=== PATIENT | female | born 1965 ===

== ENCOUNTER 2024-02-08 13:22 | Outpatient (AMB) | payer BC, SELFPAY ==
--- NOTE | 2024-02-08 13:28 | MHC.PC.OV ---
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 Required: No Accompanied by: Self / Same As Patient Allergies dulaglutide [From Trulicity] Adverse Reaction (Intermediate, Verified 02/08/24 14:07) weight gain Medication List - Last Reconciled 02/08/24 by Tori Mcneil MD apremilast (Otezla) 30 mg PO ONCE dulaglutide (Trulicity) mg subcut hydrochlorothiazide 25 mg PO DAILY losartan 50 mg PO DAILY metformin ER 500 mg PO BID Tobacco use date assessed: 02/08/24 Dental Screening Dental Screen Date: 02/08/24 Did you have a dental visit in the last 12 months?: No Did you have a dental problem in the last 6 months where you did not have access to dental care?: No Was dental information given to patient?: Patient has dentist HPI HPI Comments History of Present Illness Details This is a 58-year-old female with diabetes mellitus type 2, hypertension, psoriatic arthritis and dyslipidemia that comes today to establish care. A1c within goal. Blood pressure elevated and will be recheck in 3 weeks by nurse navigator. Has psoriatic arthritis and needs a new dehorner. Lipid panel will be order due to her history of dyslipidemia. She is obese with a BMI of 35.3 and was advised to do diet and exercise as tolerated to reach BMI goal less than 30. No chest pain or shortness of breath. [facility] Surgical History (Updated 02/08/24 @ 13:53 by Tori Mcneil MD) History of colonoscopy History of appendectomy History of Family History Mother Breast cancer Colon cancer Stomach cancer Father Alzheimer disease Social History (Updated 02/08/24 @ 13:54 by Tori Mcneil MD) Housing: House Alcohol intake: never Patient Tobacco Use Status: Former Tobacco user e-Cigarette/Vaping Use: Never Used Second Hand Smoke Exposure: No service: No Current occupational status: employed Current occupational exposures/hazards: No Cognitive needs: No Hearing needs: No Vision needs: Yes Questionnaire PHQ-9 Over the last 2 weeks, how often have you been bothered by any of the following problems? 1. Little interest or pleasure in doing things: not at all 2. Feeling down, depressed, or hopeless: not at all 3. Trouble falling or staying asleep, or sleeping too much: not at all 4. Feeling tired or having little energy: not at all 5. Poor appetite or overeating: not at all 6. Feeling bad about yourself - or that you are a failure or have let yourself or your family down: not at all 7. Trouble concentrating on things, such as reading the newspaper or watching television: not at all 8. Moving or speaking so slowly that other people could have noticed. Or the opposite - being so fidgety or restless that you have been moving around a lot more than usual: not at all 9. Thoughts that you would be better off or of hurting yourself in some way: not at all Total score: 0 Depression Screening Interpretation: Negative Depression Screening Done: Yes 16470 - PHQ-9 Billing: Yes Source: Developed by Drs. Dennis Martin, Palmira Lozoya, Hitesh Soliz and colleagues, with an educational lois from [employer]. Thrive Questionnaire Date Thrive assessed: 02/08/24 I am a: Patient What is your living situation today?: I have a steady place to live Within the past 12 months, did the food you bought not last and you didn't have the money to get more?: Never true Within the past 12 months, did you worry whether your food would run out before you got money to buy more?: Never true Do you have trouble paying for medicines?: No Do you have trouble getting transportation to medical appointments?: No Do you have trouble paying your heating and electricity bill?: No Do you have trouble taking care of your child, family member or friend?: No Do you have trouble with day-to-day activities such as bathing, preparing meals, shopping, managing finances, etc.?: No Are you currently unemployed and looking for a job?: No Are you interested in more education?: No Please select the resources that you would like help with: None Currently or been in a relationship where the following occur: no concerns reported THRIVE Score: 0 AUDIT C Alcohol Use Questionnaire (AUDIT-C) 1. How often do you have a drink containing alcohol?: Never Total Score: 0 CARRINGTON-7 AMB Questionnaire CARRINGTON-7 Date CARRINGTON - 7 assessed: 02/08/24 Feeling nervous, anxious, or on edge: 0 = Not at all Not being able to stop or control worryin = Not at all Worrying too much about different things: 0 = Not at all Trouble relaxin = Not at all Being so restless that it is hard to sit still: 0 = Not at all Becoming easily annoyed or irritable: 0 = Not at all Feeling afraid as if something awful might happen: 0 = Not at all Total CARRINGTON-7 score (0-4 normal; 5-9 mild; 10-14 moderate; 15-21 severe): 0 Source: Developed by Drs. Dennis Martin, Palmira Lozoya, Hitesh Soliz and colleagues, with an educational lois from [employer]. Review of Systems Const All systems reviewed & are unremarkable except as noted in HPI and below Eyes Reports no additional complaints, Denies change in vision and Denies other visual disturbances Card Denies chest pain at rest, Denies chest pain with activity, Denies edema, Denies irregular heart rhythm, Denies claudication, Denies dyspnea, Denies dyspnea on exertion, Denies orthopnea, Denies paroxysmal nocturnal dyspnea and Denies slow heart rate Resp Denies cough, Denies dyspnea and Denies dyspnea on exertion GI Denies abdominal pain, Denies change in bowel habits, Denies excessive flatus, Denies nausea and Denies vomiting Denies urinary incontinence, Denies urinary hesitancy and Denies urinary urgency Physical exam (Primary Care) Vital Signs: Last Vital Signs BP 160/100 H 02/08/24 13:29 BMI result Body Mass Index 35.3 Tobacco/Smoking Status: Tobacco use Status Tobacco use date assessed 02/08/24 02/08/24 13:38 Patient Tobacco Use Status Former Tobacco user 02/08/24 13:54 e-Cigarette/Vaping Use Never Used 02/08/24 13:54 PHQ-9: PHQ-9 Score PHQ-9: Total score 0 02/08/24 14:14 Depression Screening Interpretation: Negative Thrive Assessment: Date of Thrive Assessment Date Thrive assessed 02/08/24 02/08/24 13:38 Currently or been in a relationship where the following occur: no concerns reported Resp Effort & Inspection: normal respiratory effort Auscultation: clear to auscultation bilaterally Cardio Jugular venous distension: no JVD Rate: regular rate Rhythm: regular rhythm Heart sounds: S1 normal heart sound present and S2 normal heart sound present Extrem General: Yes full ROM Results AMB Hemoglobin A1c AMB Hemoglobin A1c 5.9 % Last Edit by FELIPE Garcia on 02/08/24 13:52 Results Reviewed Results Reviewed: Laboratory Last Values Hgb A1c (Clinic) 5.9 % (4.0-6.0) 02/08/24 13:52 Assessment and Plan Assessment & Plan (1) Type 2 diabetes mellitus, without long-term current use of insulin: Code(s): E11.9 - Type 2 diabetes mellitus without complications Plan: Continue metformin. Discontinue Trulicity. Start Ozempic. A1c goal is equal or less than 7%. (2) Psoriatic arthritis: Code(s): L40.50 - Arthropathic psoriasis, unspecified Plan: Continue Otezla. Referred to Dermatology. (3) Essential hypertension: Code(s): I10 - Essential (primary) hypertension Plan: Continue losartan hydrochlorothiazide. Blood pressure goal is equal or less than 130/80. (4) Dyslipidemia: Code(s): E78.5 - Hyperlipidemia, unspecified Plan: Repeat lipid panel. LDL goal is less than 70. Orders: Orders Lipid Panel Today E78.5 - Hyperlipidemia, unspecified AMB Hemoglobin A1c Today E11.9 - Type 2 diabetes mellitus without complications Microalbumin, Random (w Creat) Today E11.9 - Type 2 diabetes mellitus without complications Comprehensive [place]. Panel Fast Today E11.9 - Type 2 diabetes mellitus without complications Referrals Dermatology Referral L40.50 - Arthropathic psoriasis, unspecified Medications: New semaglutide (Ozempic) for 4 weeks 0.25 mg (0.368 mL) subcut QWEEK 30 days 1.84 mL 0RF Coding Level of Care Code Est Pt Level 4 (76137) Diagnoses Type 2 diabetes mellitus, without long-term current use of insulin E11.9 Psoriatic arthritis L40.50 Essential hypertension I10 Dyslipidemia E78.5 Time Spent (min) 24
[2024-02-08 13:29] VITALS: BP 160/100; BMI 35.3
== END 2024-02-08 14:16 | disposition home or self-care (01) ==
PROVIDERS: PCP Internal Medicine; Visit Provider Internal Medicine
DX: E11.9 Type 2 diabetes mellitus without complications (principal); L40.50 Arthropathic psoriasis, unspecified; I10 Essential (primary) hypertension; E78.5 Hyperlipidemia, unspecified
CPT/HCPCS: 83036; 99214

== ENCOUNTER 2024-06-08 06:28 | Outpatient (REF) | payer BC, SELFPAY ==
[2024-06-08 07:44] LABS: Alanine Aminotransferase 41 U/L (0-31); Albumin Level 4.3 g/dL (3.5-5.0); Alkaline Phosphatase 77 U/L (39-117); Anion Gap 13 (12-20); Aspartate Amino Transferase 22 U/L (5-31); Bilirubin Total 0.6 mg/dL (0.0-1.0); Blood Urea Nitrogen 13 mg/dL (9-16); Calcium 10.3 mg/dL (8.4-10.2); Carbon Dioxide 32 mmol/L (22-29); Chloride 98 mmol/L (96-108); Cholesterol 246 mg/dL (<200); Estimated Glomerular Filt Rate > 60; Glucose Fasting 122 mg/dL (60-99); HDL Cholesterol 38 mg/dL (>40); LDL Cholesterol Calculated 179 mg/dL (<100); Sodium 140 mmol/L (135-145); Total Protein 7.7 g/dL (6.5-8.0); Triglycerides 148 mg/dL (<150)
[2024-06-08 07:47] LABS: Microalbum/Creatinine Ratio Ur 12.7 ug/mg cr (<30)
== END 2024-06-08 06:29 | disposition home or self-care (01) ==
LOC: HO.LAB 06:28
PROVIDERS: PCP Internal Medicine; Visit Provider Internal Medicine
DX: E11.9 Type 2 diabetes mellitus without complications (principal); E78.5 Hyperlipidemia, unspecified
CPT/HCPCS: 36415; 80053; 80061; 82043; 82570

== ENCOUNTER 2024-06-11 09:25 | Outpatient (AMB) | payer BC, SELFPAY ==
[2024-06-11 09:37] VITALS: BP 132/86; BMI 35.0
--- NOTE | 2024-06-11 09:37 | MHC.PC.OV ---
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 Required: No Accompanied by: Self / Same As Patient [facility] Adverse Reaction (Intermediate, Verified 06/11/24 10:05) weight gain Medication List - Last Reconciled 06/11/24 by Tori Mcneil MD apremilast (Otezla) 30 mg PO ONCE hydrochlorothiazide 25 mg PO DAILY 90 days losartan 50 mg PO DAILY metformin ER 500 mg PO BID 90 days semaglutide (Ozempic) 1 mg (0.75 mL) subcut QWEEK 4 weeks Tobacco use date assessed: 02/08/24 Dental Screening Dental Screen Date: 02/08/24 HPI HPI Comments History of Present Illness Details This is a 59-year-old female with diabetes mellitus type 2, hypertension, hyperlipidemia and psoriatic arthritis that comes today accompanied by daughter Jennifer complaining of a lump in the head that she noticed 2 weeks ago. A1c within goal. Blood pressure stable. LDL not on goal and I will start her on statins. Psoriatic arthritis is follow by Dermatology. Labs were discussed and has low potassium that will be replaced and this will be repeated. [facility] Surgical History History of colonoscopy History of appendectomy History of Family History Mother Breast cancer Colon cancer Stomach cancer Father Alzheimer disease Social History Housing: House Alcohol intake: never Patient Tobacco Use Status: Former Tobacco user e-Cigarette/Vaping Use: Never Used Second Hand Smoke Exposure: No service: No Current occupational status: employed Current occupational exposures/hazards: No Cognitive needs: No Hearing needs: No Vision needs: Yes Questionnaire Thrive Questionnaire Date Thrive assessed: 02/08/24 CARRINGTON-7 AMB Questionnaire CARRINGTON-7 Date CARRINGTON - 7 assessed: 02/08/24 Source: Developed by Drs. Dennis Martin, Palmira Lozoya, Hitesh Soliz and colleagues, with an educational lois from [employer]. Review of Systems Const All systems reviewed & are unremarkable except as noted in HPI and below Card Denies chest pain at rest, Denies chest pain with activity, Denies edema, Denies irregular heart rhythm, Denies claudication, Denies dyspnea, Denies dyspnea on exertion, Denies orthopnea, Denies paroxysmal nocturnal dyspnea and Denies slow heart rate Resp Denies cough, Denies dyspnea and Denies dyspnea on exertion GI Denies abdominal pain, Denies change in bowel habits, Denies excessive flatus, Denies nausea and Denies vomiting Denies urinary incontinence, Denies urinary hesitancy and Denies urinary urgency Skin/Breast Reports lesions Physical exam (Primary Care) Vital Signs: Last Vital Signs BP 132/86 06/11/24 09:37 BMI result Body Mass Index 35.0 BMI Assessment/Plan discussion: High BMI High, discussed plan: lifestyle, weight reduction, dietary and physical activity Tobacco/Smoking Status: Tobacco use Status Tobacco use date assessed 02/08/24 06/11/24 09:40 Patient Tobacco Use Status Former Tobacco user 06/11/24 09:40 e-Cigarette/Vaping Use Never Used 06/11/24 09:40 Thrive Assessment: Date of Thrive Assessment Date Thrive assessed 02/08/24 06/11/24 09:40 HENMT Other: nontender skull lump in frontal area Resp Effort & Inspection: normal respiratory effort Auscultation: clear to auscultation bilaterally Cardio Jugular venous distension: no JVD Rate: regular rate Rhythm: regular rhythm Heart sounds: S1 normal heart sound present and S2 normal heart sound present Extrem General: Yes full ROM Results AMB Hemoglobin A1c AMB Hemoglobin A1c 5.5 % Last Edit by FELIPE Garcia on 06/11/24 09:48 Results Reviewed Results Reviewed: Laboratory Last Values Hgb A1c (Clinic) 5.5 % (4.0-6.0) 06/11/24 09:34 Assessment and Plan Assessment & Plan (1) Skull mass: Code(s): M89.8X8 - Other specified disorders of bone, other site Plan: X-ray of skull ordered. Referred to Dermatology. (2) Hypokalemia: Code(s): E87.6 - Hypokalemia Plan: Start potassium. (3) Psoriatic arthritis: Code(s): L40.50 - Arthropathic psoriasis, unspecified Plan: Follow-up with dermatology. (4) Essential hypertension: Code(s): I10 - Essential (primary) hypertension Plan: Continue hydrochlorothiazide and losartan. Blood pressure goal is equal or less than 130/80. (5) Type 2 diabetes mellitus, without long-term current use of insulin: Code(s): E11.9 - Type 2 diabetes mellitus without complications Plan: Continue metformin. A1c goal is equal or less than 7% (6) Hyperlipidemia LDL goal <70: Code(s): E78.5 - Hyperlipidemia, unspecified Plan: Start statins. LDL goal is less than 70. Orders: Orders Calcium, Ionized Today E83.52 - Hypercalcemia XR skull <4V Today M89.8X8 - Other specified disorders of bone, other site AMB Hemoglobin A1c Today E11.9 - Type 2 diabetes mellitus without complications Complete Blood Count Auto Diff Today D64.9 - Anemia, unspecified IRON PROFILE Today D64.9 - Anemia, unspecified Potassium Today E87.6 - Hypokalemia Referrals Dermatology Referral M89.8X8 - Other specified disorders of bone, other site Medications: New semaglutide (Ozempic) 2 mg (0.75 mL) subcut QWEEK 4 weeks 3 mL 3RF E11.9 - Type 2 diabetes mellitus without complications potassium chloride ER 10 mEq PO DAILY 5 days 5 caps 0RF Discontinued semaglutide (Ozempic) Discontinued Reason: Patient Completed Course 1 mg (0.75 mL) subcut QWEEK 4 weeks 3 mL 0RF Coding Level of Care Code Est Pt Level 4 (70672) Complex EM visit Add On G2211 Diagnoses Skull mass M89.8X8 Hypokalemia E87.6 Psoriatic arthritis L40.50 Essential hypertension I10 Type 2 diabetes mellitus, without long-term current use of insulin E11.9 Hyperlipidemia LDL goal <70 E78.5 Time Spent (min) 23
== END 2024-06-11 10:18 | disposition home or self-care (01) ==
PROVIDERS: PCP Internal Medicine; Visit Provider Internal Medicine
DX: E11.69 Type 2 diabetes mellitus with other specified complication (principal); L40.50 Arthropathic psoriasis, unspecified; M89.8X8 Other specified disorders of bone, other site; E87.6 Hypokalemia; I10 Essential (primary) hypertension; E78.5 Hyperlipidemia, unspecified
CPT/HCPCS: 83036; 99214

== ENCOUNTER 2024-06-11 10:24 | Outpatient (REF) | payer BC, SELFPAY ==
--- NOTE | ~2024-06-11 | XR_ITS ---
EXAMINATION: XR SKULL CLINICAL INFORMATION: Disorder of the osseous structures of the calvarium/face. COMPARISON: None available. TECHNIQUE: 5 views of the skull were obtained. (PA, lateral , Bojorquez, Pretty, and submentovertex views). FINDINGS/ XR/XR skull <4V IMPRESSION: No evidence of acute fracture of the calvarium. No demonstrated displaced fracture of the maxillofacial bones. The temporal mandibular joints appear well aligned. The patient is edentulous. Mild leftward nasal septal deviation. The paranasal sinuses and mastoid air cells appear largely aerated. Electronically signed by: Werner Swenson DO 07/20/2024 01:49 PM EDT
== END 2024-06-11 10:25 | disposition home or self-care (01) ==
LOC: HO.XRAY 10:24
PROVIDERS: PCP Internal Medicine; Visit Provider Internal Medicine
DX: M89.8X8 Other specified disorders of bone, other site (principal)
CPT/HCPCS: 70250

== ENCOUNTER 2024-07-06 06:02 | Outpatient (REF) | payer BC, SELFPAY ==
[2024-07-06 06:16] LABS: MANUAL DIFF FLAG NO
[2024-07-06 07:42] LABS: Basophils Percent Auto 0.3 % (0-2); Eosinophils Absolute Auto 0.2 X10*3/uL (0.0-0.4); Eosinophils Percent Auto 2.3 % (0-4); Hematocrit 40.3 % (37.0-47.0); Hemoglobin 13.7 g/dl (12.0-16.0); Imm Gran Abs Auto 0.02 X10*3/uL (0.00-0.03); Imm Gran Pct Auto 0.3 % (0.0-0.4); Lymphocytes Absolute Auto 2.5 X10*3/uL (1.2-4.9); Lymphocytes Percent Auto 38.3 % (20-40); Mean Corpuscular Hemoglobin 29.4 pg (27.0-33.0); Mean Corpuscular Volume 86.5 fL (80.0-98.0); Mean Platelet Volume 10.9 fL (9.4-12.3); Monocytes Absolute Auto 0.6 X10*3/uL (0.1-1.2); Monocytes Percent Auto 8.7 % (2-11); Neutrophils Absolute Auto 3.3 x10*3/uL (2.0-8.3); Neutrophils Percent Auto 50.1 % (45-73); Platelet Count 331 X10*3/uL (160-400); Red Blood Count 4.66 X10*6/uL (4.20-5.50); Red Cell Distribution Width 12.3 % (11.0-16.0); White Blood Count 6.6 X10*3/uL (4.8-10.8)
[2024-07-06 08:19] LABS: Iron 81 mcg/dL (30-160); Percent Iron Saturation 32 % (15-50); Total Iron Binding Capacity 250 mcg/dL (228-428); Unsaturated Iron Binding 169 ug/dL
[2024-07-09 23:07] LABS: Calcium, Ionized 5.2 mg/dL (4.7-5.5)
== END 2024-07-06 06:03 | disposition home or self-care (01) ==
LOC: HO.LAB 06:02
PROVIDERS: PCP Internal Medicine; Visit Provider Internal Medicine
DX: E87.6 Hypokalemia (principal); E83.52 Hypercalcemia; D64.9 Anemia, unspecified
CPT/HCPCS: 36415; 82330; 83540; 84132; 85025

== ENCOUNTER 2024-07-12 07:20 | Outpatient (AMB) | payer BC, SELFPAY ==
--- NOTE | 2024-07-12 07:40 | MHC.PC.OV ---
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: No Accompanied by: Self / Same As Patient Allergies dulaglutide [From Trulicity] Adverse Reaction (Intermediate, Verified 07/12/24 07:47) weight gain Medication List - Last Reconciled 07/12/24 by Tori Mcneil MD apremilast (Otezla) 30 mg PO ONCE hydrochlorothiazide 25 mg PO DAILY 90 days losartan 50 mg PO DAILY metformin ER 500 mg PO BID 90 days potassium chloride ER 10 mEq PO DAILY 5 days semaglutide (Ozempic) 2 mg (0.75 mL) subcut QWEEK 4 weeks Tobacco use date assessed: 02/08/24 Dental Screening Dental Screen Date: 07/12/24 Did you have a dental visit in the last 12 months?: No Did you have a dental problem in the last 6 months where you did not have access to dental care?: No Was dental information given to patient?: Patient has dentist HPI HPI Comments History of Present Illness Details This is a 59-year-old female with diabetes mellitus type 2 on psoriatic arthritis that comes for her physical exam. Last A1c was within goal. LDL not on goal and I will add statins. Diabetic eye exam was over a year ago and will be referred to Ophthalmology. Mammogram done 2022 and I will order another mammogram. No need for Pap smear due to hysterectomy for benign reasons. Colonoscopy done 2020 showing tubular adenoma and next colonoscopy should be 2025. Complains of left costovertebral angle tenderness and has history of nephrolithiasis and I will order x-ray KUB to rule out renal calculi. Psoriatic arthritis stable with Otezla. [facility] Surgical History (Updated 07/12/24 @ 07:52 by Tori Mcneil MD) H/O: hysterectomy History of colonoscopy History of appendectomy History of Family History Mother Breast cancer Colon cancer Stomach cancer Father Alzheimer disease Social History Housing: House Alcohol intake: never Patient Tobacco Use Status: Former Tobacco user e-Cigarette/Vaping Use: Never Used Second Hand Smoke Exposure: No service: No Current occupational status: employed Current occupational exposures/hazards: No Cognitive needs: No Hearing needs: No Vision needs: Yes Questionnaire PHQ-9 Over the last 2 weeks, how often have you been bothered by any of the following problems? 1. Little interest or pleasure in doing things: not at all 2. Feeling down, depressed, or hopeless: not at all 3. Trouble falling or staying asleep, or sleeping too much: not at all 4. Feeling tired or having little energy: not at all 5. Poor appetite or overeating: not at all 6. Feeling bad about yourself - or that you are a failure or have let yourself or your family down: not at all 7. Trouble concentrating on things, such as reading the newspaper or watching television: not at all 8. Moving or speaking so slowly that other people could have noticed. Or the opposite - being so fidgety or restless that you have been moving around a lot more than usual: not at all 9. Thoughts that you would be better off or of hurting yourself in some way: not at all Total score: 0 Depression Screening Interpretation: Negative Depression Screening Done: Yes 06256 - PHQ-9 Billing: Yes Source: Developed by Drs. Dennis Martin, Palmira Lozoya, Hitesh Soliz and colleagues, with an educational lois from [employer]. Thrive Questionnaire Date Thrive assessed: 07/10/24 I am a: Patient What is your living situation today?: I choose not to answer this question Within the past 12 months, did the food you bought not last and you didn't have the money to get more?: I choose not to answer this question Within the past 12 months, did you worry whether your food would run out before you got money to buy more?: I choose not to answer this question Do you have trouble paying for medicines?: I choose not to answer this question Do you have trouble getting transportation to medical appointments?: I choose not to answer this question Do you have trouble paying your heating and electricity bill?: I choose not to answer this question Do you have trouble taking care of your child, family member or friend?: I choose not to answer this question Do you have trouble with day-to-day activities such as bathing, preparing meals, shopping, managing finances, etc.?: I choose not to answer this question Are you currently unemployed and looking for a job?: I choose not to answer this question Are you interested in more education?: I choose not to answer this question Please select the resources that you would like help with: None Currently or been in a relationship where the following occur: I choose not to answer THRIVE Score: 0 AUDIT C Alcohol Use Questionnaire (AUDIT-C) 1. How often do you have a drink containing alcohol?: Never Total Score: 0 Score Reviewed/Action Taken: No CARRINGTON-7 AMB Questionnaire CARRINGTON-7 Date CARRINGTON - 7 assessed: 07/12/24 Feeling nervous, anxious, or on edge: 0 = Not at all Not being able to stop or control worryin = Not at all Worrying too much about different things: 0 = Not at all Trouble relaxin = Not at all Being so restless that it is hard to sit still: 0 = Not at all Becoming easily annoyed or irritable: 0 = Not at all Feeling afraid as if something awful might happen: 0 = Not at all Total CARRINGTON-7 score (0-4 normal; 5-9 mild; 10-14 moderate; 15-21 severe): 0 Source: Developed by Drs. Dennis Martin, Palmira Lozoya, Hitesh Soliz and colleagues, with an educational lois from [employer]. CARRINGTON-7 Assessment Billing CARRINGTON-7 Assessment Tool: CARRINGTON-7 Assessment 46858 Review of Systems Const All systems reviewed & are unremarkable except as noted in HPI and below Card Denies chest pain at rest, Denies chest pain with activity, Denies edema, Denies irregular heart rhythm, Denies claudication, Denies dyspnea, Denies dyspnea on exertion, Denies orthopnea, Denies paroxysmal nocturnal dyspnea and Denies slow heart rate Resp Denies cough, Denies dyspnea and Denies dyspnea on exertion Physical exam (Primary Care) Vital Signs: Last Vital Signs BP 120/84 07/12/24 07:41 BMI result Body Mass Index 34.2 BMI Assessment/Plan discussion: High BMI High, discussed plan: lifestyle, weight reduction, dietary and physical activity Tobacco/Smoking Status: Tobacco use Status Tobacco use date assessed 02/08/24 07/12/24 07:40 Patient Tobacco Use Status Former Tobacco user 07/12/24 07:40 e-Cigarette/Vaping Use Never Used 07/12/24 07:40 PHQ-9: PHQ-9 Score PHQ-9: Total score 0 07/12/24 07:40 Depression Screening Interpretation: Negative Thrive Assessment: Date of Thrive Assessment Date Thrive assessed 07/10/24 07/12/24 07:40 Currently or been in a relationship where the following occur: I choose not to answer HENME Head: Yes normal to inspection, Yes normocephalic and Yes atraumatic Ears: external ears normal Eyes General: appearance normal, both eyes and all related structures Eyelids: Yes eyelids normal Conjunctivae: conjunctivae normal Neck Neck: Yes normal visual inspection and Yes supple Resp Effort & Inspection: normal respiratory effort Auscultation: clear to auscultation bilaterally Cardio Jugular venous distension: no JVD Rate: regular rate Rhythm: regular rhythm Heart sounds: S1 normal heart sound present and S2 normal heart sound present GI Inspection: Yes normal to inspection Palpation (GI): Soft to palpation and nontender Auscultation: normal bowel sounds Skin General skin exam: no rashes or lesions noted Neuro General: no focal motor deficits Extrem General: Yes full ROM Psych Appearance: grossly normal Office Procedures Flu Questionnaire Does the patient have a severe egg allergy?: No Immunizations Fluarix Triv [id number] (PF) 45 mcg (15 mcg x 3)/0.5 mL IM syringe Performing Provider: Tori Mcneil MD [facility] Documented (not given) by: FELIPE Garcia on 07/12/24 07:44 Reason Not Given: Patient Refused Coding Level of Care Code Est Pt Level 3 (58976) Est Pt Prev Care 40-64y(75775) Diagnoses Physical exam Z00.00 Type 2 diabetes mellitus, without long-term current use of insulin E11.9 Psoriatic arthritis L40.50 Nephrolithiasis N20.0 Additional Codes CARRINGTON-7 Assessment Billing - CARRINGTON-7 Assessment Tool: CARRINGTON-7 Assessment 19206 ([id number]) Time Spent (min) 33 Assessment & Plan Assessment & Plan (1) Physical exam: Code(s): Z00.00 - Encounter for general adult medical examination without abnormal findings Category: Medical Plan: Repeat in a year. (2) Type 2 diabetes mellitus, without long-term current use of insulin: Code(s): E11.9 - Type 2 diabetes mellitus without complications Category: Medical Plan: Continue metformin and Ozempic. A1c goal is equal or less than 7%. (3) Psoriatic arthritis: Code(s): L40.50 - Arthropathic psoriasis, unspecified Category: Medical Plan: Continue Otezla. (4) Nephrolithiasis: Code(s): N20.0 - Calculus of kidney Category: Medical Plan: X-ray KUB ordered. Orders: Orders Comprehensive [place]. Panel Fast 4 Months N20.0 - Calculus of kidney Influenza [id number] Immunization Today Z23 - Encounter for immunization XR KUB Today N20.0 - Calculus of kidney MM tomosynthesis screening BI Today Z12.31 - Encounter for screening mammogram for malignant neoplasm of breast Lipid Panel 4 Months E78.5 - Hyperlipidemia, unspecified Microalbumin, Random (w Creat) 4 Months R80.9 - Proteinuria, unspecified Vitamin D 25-OH Total 4 Months E55.9 - Vitamin D deficiency, unspecified Medications: New rosuvastatin 20 mg PO DAILY 90 days 90 tabs 2RF methocarbamol 500 mg PO TID 7 days PRN 21 tabs 1RF muscle spasm Changed From potassium chloride ER 10 mEq PO DAILY 5 days 5 caps 0RF To potassium chloride ER 10 mEq PO DAILY 30 days 30 caps 4RF
[2024-07-12 07:41] VITALS: BP 120/84; BMI 34.2
== END 2024-07-12 08:12 | disposition home or self-care (01) ==
PROVIDERS: PCP Internal Medicine; Visit Provider Internal Medicine
DX: Z00.00 Encounter for general adult medical examination without abnormal findings (principal); E11.9 Type 2 diabetes mellitus without complications; L40.50 Arthropathic psoriasis, unspecified; N20.0 Calculus of kidney

== ENCOUNTER → 2024-07-12 07:20 | Outpatient (BNVA) | payer BC, SELFPAY | PROVIDERS: PCP Internal Medicine; Visit Provider Internal Medicine | DX: Z00.00 Encounter for general adult medical examination without abnormal findings (principal); E11.9 Type 2 diabetes mellitus without complications; L40.50 Arthropathic psoriasis, unspecified; N20.0 Calculus of kidney; Z79.84 Long term (current) use of oral hypoglycemic drugs; Z79.85 Long-term (current) use of injectable non-insulin antidiabetic drugs; Z79.899 Other long term (current) drug therapy; Z28.21 Immunization not carried out because of patient refusal | CPT/HCPCS: 90471; 96127 ==

== ENCOUNTER 2024-08-15 15:46 | Outpatient (REF) | payer BC, SELFPAY ==
--- NOTE | ~2024-08-15 | MM_ITS ---
EXAMINATION: MM SCREENING DIGITAL BREAST TOMOSYNTHESIS, BILATERAL CLINICAL INFORMATION: Screening. Asymptomatic. COMPARISON: Mammography: Comparison is made with available priors TECHNIQUE: Digital breast mammography with tomosynthesis is performed in both the craniocaudal and mediolateral oblique views along with computer-aided detection (CAD). FINDINGS: There are scattered areas of fibroglandular density (ACR BI-RADS breast composition Category b). There are no significant masses, abnormal calcifications, or other abnormalities. MM/MM tomosynthesis screening BI IMPRESSION: No mammographic evidence of malignancy. ASSESSMENT: BI-RADS BI-RADS 1 - Negative RECOMMENDATION: Routine annual mammography screening. 1 year F/U This examination should not preclude the clinical evaluation of a suspicious palpable abnormality. This patient's information was entered into a reminder system with a target due date for their next mammogram. Electronically signed by: Cait Tellez DO 08/24/2024 08:45 AM BRIAN
== END 2024-08-15 15:47 | disposition home or self-care (01) ==
LOC: HO.MAMMO 15:46
PROVIDERS: PCP Internal Medicine; Visit Provider Internal Medicine
DX: Z12.31 Encounter for screening mammogram for malignant neoplasm of breast (principal)
CPT/HCPCS: 77063; 77067

== ENCOUNTER → 2024-08-15 16:00 | Outpatient (BNV) | payer BC, SELFPAY | PROVIDERS: PCP Internal Medicine; Visit Provider Internal Medicine | DX: Z12.31 Encounter for screening mammogram for malignant neoplasm of breast (principal) | CPT/HCPCS: 77063; 77067 ==

== ENCOUNTER 2025-01-24 14:55 | Outpatient (AMB) | payer BC, SELFPAY ==
[2025-01-24 15:06] VITALS: BP 136/90; BMI 34.2
--- NOTE | 2025-01-24 15:06 | A.OFFPC_ITS ---
Vital Signs 01/24/25 15:06 Height 5 ft 1 in Weight 181 lb BMI 34.2 BP 136/90 H Blood Pressure Location Lt brachial Position Sitting Intake Visit Reasons: Paperwork FMLA- NEEDS A1C! 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 Adverse Reaction (Intermediate, Verified 01/24/25 15:11) weight gain Medication List - Last Reconciled 01/24/25 by Tori Mcneil MD apremilast (Otezla) 30 mg PO ONCE betamethasone dipropionate 0.05% 1 appl topical DAILY PRN 2 weeks hydrochlorothiazide 25 mg PO DAILY 90 days losartan 100 mg PO DAILY 90 days metformin ER 500 mg PO BID 90 days methocarbamol 500 mg PO TID PRN 7 days potassium chloride ER 10 mEq PO DAILY 30 days rosuvastatin 20 mg PO DAILY 90 days semaglutide (Ozempic) 2 mg (0.75 mL) subcut QWEEK 4 weeks Tobacco use date assessed: 01/24/25 Dental Screening Dental Screen Date: 01/24/25 Did you have a dental visit in the last 12 months?: No Did you have a dental problem in the last 6 months where you did not have access to dental care?: No Was dental information given to patient?: Patient has dentist HPI HPI Comments History of Present Illness Details The patient is a 59-year-old female presenting with medication concerns and management of her chronic conditions. She has a history of type 2 diabetes mellitus, hypertension, obesity, hyperlipidemia, and psoriatic arthritis. Her diabetes is managed with Metformin, achieving satisfactory control with an A1c around 6.0-6.1. Hypertension is controlled with hydrochlorothiazide and Losartan, though her readings occasionally approach borderline levels. She reports adverse effects from Ozempic including constipation and increased bowel movements, prompting consideration for switching to alternative medications. Her hyperlipidemia is controlled with Rosuvastatin. The psoriatic arthritis leads to monthly flare-ups, causing significant discomfort with associated pain in the lumbar spine and right hip, necessitating imaging for further assessment. [facility] Surgical History H/O: hysterectomy History of colonoscopy History of appendectomy History of Family History Mother Breast cancer Colon cancer Stomach cancer Father Alzheimer disease Social History Housing: House Alcohol intake: never Patient Tobacco Use Status: Former Tobacco user e-Cigarette/Vaping Use: Never Used Second Hand Smoke Exposure: No service: No Current occupational status: employed Current occupational exposures/hazards: No Cognitive needs: No Hearing needs: No Vision needs: Yes Questionnaire PHQ-9 Over the last 2 weeks, how often have you been bothered by any of the following problems? 1. Little interest or pleasure in doing things: not at all 2. Feeling down, depressed, or hopeless: not at all 3. Trouble falling or staying asleep, or sleeping too much: not at all 4. Feeling tired or having little energy: not at all 5. Poor appetite or overeating: not at all 6. Feeling bad about yourself - or that you are a failure or have let yourself or your family down: not at all 7. Trouble concentrating on things, such as reading the newspaper or watching television: not at all 8. Moving or speaking so slowly that other people could have noticed. Or the opposite - being so fidgety or restless that you have been moving around a lot more than usual: not at all 9. Thoughts that you would be better off or of hurting yourself in some way: not at all Total score: 0 Depression Screening Interpretation: Negative Depression Screening Done: Yes 99759 - PHQ-9 Billing: Yes Source: Developed by Drs. Dennis Martin, Palmira Lozoya, Hitesh Soliz and colleagues, with an educational lois from [employer]. Thrive Questionnaire Date Thrive assessed: 01/24/25 I am a: Patient What is your living situation today?: I have a steady place to live Within the past 12 months, did the food you bought not last and you didn't have the money to get more?: Never true Within the past 12 months, did you worry whether your food would run out before you got money to buy more?: Never true Do you have trouble paying for medicines?: No Do you have trouble getting transportation to medical appointments?: No Do you have trouble paying your heating and electricity bill?: No Do you have trouble taking care of your child, family member or friend?: No Do you have trouble with day-to-day activities such as bathing, preparing meals, shopping, managing finances, etc.?: No Are you currently unemployed and looking for a job?: No Are you interested in more education?: No Please select the resources that you would like help with: None Currently or been in a relationship where the following occur: No concerns reported THRIVE Score: 0 AUDIT C Alcohol Use Questionnaire (AUDIT-C) 1. How often do you have a drink containing alcohol?: Never Total Score: 0 Score Reviewed/Action Taken: No CARRINGTON-7 AMB Questionnaire CARRINGTON-7 Date CARRINGTON - 7 assessed: 01/24/25 Feeling nervous, anxious, or on edge: 1 = Several days Not being able to stop or control worryin = Not at all Worrying too much about different things: 0 = Not at all Trouble relaxin = Not at all Being so restless that it is hard to sit still: 0 = Not at all Becoming easily annoyed or irritable: 0 = Not at all Feeling afraid as if something awful might happen: 0 = Not at all Total CARRINGTON-7 score (0-4 normal; 5-9 mild; 10-14 moderate; 15-21 severe): 1 Source: Developed by Drs. Dennis Martin, Palmira Lozoya, Hitesh Soliz and colleagues, with an educational lois from [employer]. CARRINGTON-7 Assessment Billing CARRINGTON-7 Assessment Tool: CARRINGTON-7 Assessment 50903 Review of Systems Const All systems reviewed & are unremarkable except as noted in HPI and below Card Denies chest pain at rest, Denies chest pain with activity, Denies edema, Denies irregular heart rhythm, Denies claudication, Denies dyspnea, Denies dyspnea on exertion, Denies orthopnea, Denies paroxysmal nocturnal dyspnea and Denies slow heart rate Resp Denies cough, Denies dyspnea and Denies dyspnea on exertion Physical exam (Primary Care) Vital Signs: Last Vital Signs BP 136/90 H 01/24/25 15:06 BMI result Body Mass Index 34.2 BMI Assessment/Plan discussion: High BMI High, discussed plan: lifestyle, weight reduction, dietary and physical activity Tobacco/Smoking Status: Tobacco use Status Tobacco use date assessed 01/24/25 01/24/25 15:11 Patient Tobacco Use Status Former Tobacco user 01/24/25 15:11 e-Cigarette/Vaping Use Never Used 01/24/25 15:11 PHQ-9: PHQ-9 Score PHQ-9: Total score 0 01/24/25 15:16 Depression Screening Interpretation: Negative Thrive Assessment: Date of Thrive Assessment Date Thrive assessed 01/24/25 01/24/25 15:11 Currently or been in a relationship where the following occur: No concerns reported Resp Effort & Inspection: normal respiratory effort Auscultation: clear to auscultation bilaterally Cardio Jugular venous distension: no JVD Rate: regular rate Rhythm: regular rhythm Heart sounds: S1 normal heart sound present and S2 normal heart sound present Extrem General: Yes full ROM Results AMB Hemoglobin A1c AMB Hemoglobin A1c 6.1 % Last Edit by FELIPE Garcia on 01/24/25 15:1 6 Results Reviewed Results Reviewed: Laboratory Last Values Hgb A1c (Clinic) 6.1 % (4.0-6.0) H 01/24/25 15:15 Coding Level of Care Code Est Pt Level 4 (12646) Complex EM visit Add On G2211 Diagnoses Type 2 diabetes mellitus without complication, without long-term current use of insulin E11.9 Diabetes mellitus complication status: without complication Essential hypertension I10 Psoriatic arthritis L40.50 Right hip pain M25.551 Hyperlipidemia LDL goal <70 E78.5 Additional Codes CARRINGTON-7 Assessment Billing - CARRINGTON-7 Assessment Tool: CARRINGTON-7 Assessment 04471 ([id number]) PHQ-9 - 10759 - PHQ-9 Billing: Yes ([id number]) Time Spent (min) 23 Assessment & Plan Assessment & Plan (1) Type 2 diabetes mellitus, without long-term current use of insulin: Code(s): E11.9 - Type 2 diabetes mellitus without complications Category: Medical Qualifiers: Diabetes mellitus complication status: without complication Qualified Code(s): E11.9 - Type 2 diabetes mellitus without complications (2) Essential hypertension: Code(s): I10 - Essential (primary) hypertension Category: Medical (3) Psoriatic arthritis: Code(s): L40.50 - Arthropathic psoriasis, unspecified Category: Medical (4) Right hip pain: Code(s): M25.551 - Pain in right hip Category: Medical (5) Hyperlipidemia LDL goal <70: Code(s): E78.5 - Hyperlipidemia, unspecified Category: Medical Plan We initiated switching the patient from Ozempic to Jardiance due to gastrointestinal discomfort. Her essential hypertension will continue to be managed with her current regimen; however, we need to ensure tighter control to avoid borderline levels. Imaging of the lumbar spine and right hip will be done in conjunction with her laboratory assessments to address concerns regarding psoriatic arthritis. Continued use of Rosuvastatin is recommended for her hyperlipidemia management. FMLA documentation is completed with considerations for extended management of her chronic arthritis. We will revisit her treatment plan in four months, during which efficacy and tolerability of her new regimen will be evaluated. Patient was informed and verbally consented to the use of an ambient scribe for clinic note documentation during this visit. We discussed the switch from Ozempic to Jardiance due to unwanted side effects. I elaborated on the benefits of Jardiance in terms of glycemic control and potential impacts on weight management. We talked about the importance of blood pressure control and how maintaining a regimen can help avoid borderline results. Imaging studies were ordered for her psoriatic arthritis, emphasizing the need to evaluate any progression or complications. I outlined the plan to use Rosuvastatin for cholesterol management and will track her response over time. Documentation for her FMLA was reviewed to ensure the long-term management plan accommodates her medical needs. She expressed understanding and agreement with the proposed changes, and anticipatory follow-up was arranged for thorough evaluation and verification of treatment efficacy. Orders: Orders AMB Hemoglobin A1c Today E11.9 - Type 2 diabetes mellitus without complications Lipid Panel Today E78.5 - Hyperlipidemia, unspecified Microalbumin, Random (w Creat) Today R80.9 - Proteinuria, unspecified XR hip RT min 2V Today M25.551 - Pain in right hip Vitamin D 25-OH Total Today E55.9 - Vitamin D deficiency, unspecified Comprehensive Met. Panel Today M25.551 - Pain in right hip Medications: New empagliflozin (Jardiance) 10 mg PO DAILY 90 tabs 1RF 90 days Discontinued semaglutide (Ozempic) Discontinued Reason: Patient Completed Course 2 mg (0.75 mL) subcut QWEEK 4 weeks 3 mL 3RF E11.9 - Type 2 diabetes mellitus without complications Patient Instructions: - Complete the laboratory test after overnight fasting. - Start the new Jardiance prescription as directed. - Contact us if you experience increased side effects. - Schedule and attend X-rays for lumbar spine and right hip. - Continue current medications and follow dietary and activity recommendations. - Return in four months for a follow-up visit.
== END 2025-01-24 15:26 | disposition home or self-care (01) ==
LOC: HO.HMCH 14:56
PROVIDERS: PCP Internal Medicine; Visit Provider Internal Medicine
DX: E11.9 Type 2 diabetes mellitus without complications (principal); I10 Essential (primary) hypertension; L40.50 Arthropathic psoriasis, unspecified; M25.551 Pain in right hip; E78.5 Hyperlipidemia, unspecified

== ENCOUNTER → 2025-01-24 14:55 | Outpatient (BNVA) | payer BC, SELFPAY | PROVIDERS: PCP Internal Medicine; Visit Provider Internal Medicine | DX: E11.9 Type 2 diabetes mellitus without complications (principal); I10 Essential (primary) hypertension; L40.50 Arthropathic psoriasis, unspecified; M25.551 Pain in right hip; E78.5 Hyperlipidemia, unspecified; Z79.84 Long term (current) use of oral hypoglycemic drugs; Z79.899 Other long term (current) drug therapy | CPT/HCPCS: 83036; 96127 ==

== ENCOUNTER 2025-03-05 06:48 | Outpatient (REF) | payer BC, SELFPAY ==
[2025-03-05 08:01] LABS: Vitamin D 25-OH Total 18.5 ng/mL (>30)
[2025-03-05 08:06] LABS: Alanine Aminotransferase 39 U/L (0-31); Albumin Level 4.3 g/dL (3.5-5.0); Alkaline Phosphatase 67 U/L (39-117); Anion Gap 11 (12-20); Aspartate Amino Transferase 27 U/L (5-31); Bilirubin Total 0.3 mg/dL (0.0-1.0); Blood Urea Nitrogen 19 mg/dL (9-16); Calcium 9.5 mg/dL (8.4-10.2); Carbon Dioxide 34 mmol/L (22-29); Chloride 101 mmol/L (96-108); Cholesterol 255 mg/dL (<200); Estimated Glomerular Filt Rate > 60; Glucose Fasting 115 mg/dL (60-99); Glucose Random 115 mg/dL (60-115); HDL Cholesterol 37 mg/dL (>40); LDL Cholesterol Calculated 186 mg/dL (<100); Potassium 2.9 mmol/L (3.3-5.1); Sodium 143 mmol/L (135-145); Total Protein 7.7 g/dL (6.5-8.0); Triglycerides 164 mg/dL (<150)
[2025-03-05 08:11] LABS: Creatinine Urine 155.95 mg/dL; Microalbum/Creatinine Ratio Ur 17.9 ug/mg cr (<30)
== END 2025-03-05 06:49 | disposition home or self-care (01) ==
LOC: HO.LAB 06:48
PROVIDERS: PCP Internal Medicine; Visit Provider Internal Medicine
DX: N64.4 Mastodynia (principal); M79.622 Pain in left upper arm; M79.10 Myalgia, unspecified site; E55.9 Vitamin D deficiency, unspecified; M89.8X1 Other specified disorders of bone, shoulder; E78.5 Hyperlipidemia, unspecified; E87.6 Hypokalemia; I10 Essential (primary) hypertension; E11.9 Type 2 diabetes mellitus without complications; M25.551 Pain in right hip; N20.0 Calculus of kidney; R80.9 Proteinuria, unspecified
CPT/HCPCS: 36415; 80053; 80061; 82043; 82306; 82570; 96127

== ENCOUNTER 2025-03-05 07:51 | Outpatient (AMB) | payer BC, SELFPAY ==
--- NOTE | 2025-03-05 07:58 | A.OFFPC_ITS ---
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 Required: No Accompanied by: Self / Same As Patient All[facility]ies [facility] Adverse Reaction (Intermediate, Verified 03/05/25 08:15) weight gain Medication List - Last Reconciled 03/05/25 by Tori Mcneil MD apremilast (Otezla) 30 mg PO ONCE betamethasone dipropionate 0.05% 1 appl topical DAILY PRN 2 weeks empagliflozin (Jardiance) 10 mg PO DAILY 90 days hydrochlorothiazide 25 mg PO DAILY 90 days losartan 100 mg PO DAILY 90 days metformin ER 500 mg PO BID 90 days methocarbamol 500 mg PO TID PRN 7 days potassium chloride ER 10 mEq PO DAILY 30 days rosuvastatin 20 mg PO DAILY 90 days Tobacco use date assessed: 01/24/25 Dental Screening Dental Screen Date: 01/24/25 HPI HPI Comments History of Present Illness Details The patient is a 59-year-old female presenting with blood pressure management and abnormal lab results. She reports that her potassium is 2.9 mmol/L and her cholesterol is 255 mg/dL, with an LDL of 186 mg/dL. Vitamin D is 18.5 ng/mL. Her medication regimen includes antihypertensives, glucose-lowering agents, and statins. She previously experienced left scapula pain, which is still present. Blood pressure will be recheck in 3 weeks by nurse navigator. She has not take her antihypertensives today yet. She admits not being compliant with her potassium and statins. She complains of left and right breast pain at 12:00 that started about 10 days ago. Last mammogram was in August of last year and it was normal. The pain started in the left axilla and radiated to the 12:00 position in left breast and right breast. It is tender to palpation and can be muscle associated in origin and this is why I will start her on baclofen. COUNT INCLUDES [facility] Surgical History H/O: hysterectomy History of colonoscopy History of appendectomy History of Family History Mother Breast cancer Colon cancer Stomach cancer Father Alzheimer disease Social History Housing: House Alcohol intake: never Patient Tobacco Use Status: Former Tobacco user e-Cigarette/Vaping Use: Never Used Second Hand Smoke Exposure: No service: No Current occupational status: employed Current occupational exposures/hazards: No Cognitive needs: No Hearing needs: No Vision needs: Yes Questionnaire PHQ-9 Over the last 2 weeks, how often have you been bothered by any of the following problems? 1. Little interest or pleasure in doing things: not at all 2. Feeling down, depressed, or hopeless: not at all 3. Trouble falling or staying asleep, or sleeping too much: not at all 4. Feeling tired or having little energy: not at all 5. Poor appetite or overeating: not at all 6. Feeling bad about yourself - or that you are a failure or have let yourself or your family down: not at all 7. Trouble concentrating on things, such as reading the newspaper or watching television: not at all 8. Moving or speaking so slowly that other people could have noticed. Or the opposite - being so fidgety or restless that you have been moving around a lot more than usual: not at all 9. Thoughts that you would be better off or of hurting yourself in some way: not at all Total score: 0 Depression Screening Interpretation: Negative Depression Screening Done: Yes 40665 - PHQ-9 Billing: Yes Source: Developed by Drs. Dennis Martin, Palmira Lozoya, Hitesh Soliz and colleagues, with an educational lois from [email or web address]. Thrive Questionnaire Date Thrive assessed: 01/24/25 I am a: Patient What is your living situation today?: I choose not to answer this question Within the past 12 months, did the food you bought not last and you didn't have the money to get more?: I choose not to answer this question Within the past 12 months, did you worry whether your food would run out before you got money to buy more?: I choose not to answer this question Do you have trouble paying for medicines?: I choose not to answer this question Do you have trouble getting transportation to medical appointments?: I choose not to answer this question Do you have trouble paying your heating and electricity bill?: I choose not to answer this question Do you have trouble taking care of your child, family member or friend?: I choose not to answer this question Do you have trouble with day-to-day activities such as bathing, preparing meals, shopping, managing finances, etc.?: I choose not to answer this question Are you currently unemployed and looking for a job?: I choose not to answer this question Are you interested in more education?: I choose not to answer this question Please select the resources that you would like help with: None Currently or been in a relationship where the following occur: I choose not to answer THRIVE Score: 0 AUDIT C Alcohol Use Questionnaire (AUDIT-C) 1. How often do you have a drink containing alcohol?: Never Total Score: 0 Score Reviewed/Action Taken: No CARRINGTON-7 AMB Questionnaire CARRINGTON-7 Date CARRINGTON - 7 assessed: 01/24/25 Feeling nervous, anxious, or on edge: 0 = Not at all Not being able to stop or control worryin = Not at all Worrying too much about different things: 0 = Not at all Trouble relaxin = Not at all Being so restless that it is hard to sit still: 0 = Not at all Becoming easily annoyed or irritable: 0 = Not at all Feeling afraid as if something awful might happen: 0 = Not at all Total CARRINGTON-7 score (0-4 normal; 5-9 mild; 10-14 moderate; 15-21 severe): 0 Source: Developed by Drs. Dennis Martin, Palmira Lozoya, Hitesh Soliz and colleagues, with an educational lois from [email or web address]. CARRINGTON-7 Assessment Billing CARRINGTON-7 Assessment Tool: CARRINGTON-7 Assessment 25274 Review of Systems Const All systems reviewed & are unremarkable except as noted in HPI and below Card Denies chest pain at rest, Denies chest pain with activity, Denies edema, Denies irregular heart rhythm, Denies claudication, Denies dyspnea, Denies dyspnea on exertion, Denies orthopnea, Denies paroxysmal nocturnal dyspnea and Denies slow heart rate Resp Denies cough, Denies dyspnea and Denies dyspnea on exertion GI Denies abdominal pain, Denies change in bowel habits, Denies excessive flatus, Denies nausea and Denies vomiting Denies urinary incontinence, Denies urinary hesitancy and Denies urinary urgency Skin/Breast Denies bleeding lesions, Reports breast pain, Denies changing lesions and Denies rash Neuro Denies lack of coordination Physical exam (Primary Care) Vital Signs: Last Vital Signs BP 150/82 H 03/05/25 07:59 BMI result Body Mass Index 34.0 BMI Assessment/Plan discussion: High BMI High, discussed plan: lifestyle, weight reduction, dietary and physical activity Tobacco/Smoking Status: Tobacco use Status Tobacco use date assessed 01/24/25 03/05/25 08:02 Patient Tobacco Use Status Former Tobacco user 03/05/25 08:02 e-Cigarette/Vaping Use Never Used 03/05/25 08:02 PHQ-9: PHQ-9 Score PHQ-9: Total score 0 03/05/25 08:02 Depression Screening Interpretation: Negative Thrive Assessment: Date of Thrive Assessment Date Thrive assessed 01/24/25 03/05/25 08:02 Currently or been in a relationship where the following occur: I choose not to answer Chest Chest palpation & inspection: tenderness Breast/axilla palpation: abnormal palpation of the axilla (Left axillary tenderness) and abnormal palpation of the breast (Left and right breast pain at 12:00) Resp Effort & Inspection: normal respiratory effort Auscultation: clear to auscultation bilaterally Cardio Jugular venous distension: no JVD Rate: regular rate Rhythm: regular rhythm Heart sounds: S1 normal heart sound present and S2 normal heart sound present Skin General skin exam: no rashes or lesions noted Extrem General: Yes full ROM Coding Level of Care Code Est Pt Level 4 (06582) Complex EM visit Add On G2211 Diagnoses Pain in left axilla M79.622 Breast pain, left N64.4 Breast pain, right N64.4 Myalgia M79.10 Hypovitaminosis D E55.9 Pain of right scapula M89.8X1 Hyperlipidemia LDL goal <70 E78.5 Hypokalemia E87.6 Essential hypertension I10 Type 2 diabetes mellitus without complication, without long-term current use of insulin E11.9 Diabetes mellitus complication status: without complication Additional Codes PHQ-9 - 63418 - PHQ-9 Billing: Yes ([id number]) CARRINGTON-7 Assessment Billing - CARRINGTON-7 Assessment Tool: CARRINGTON-7 Assessment 01633 ([id number]) Time Spent (min) 25 Assessment & Plan Assessment & Plan (1) Pain in left axilla: Code(s): M79.622 - Pain in left upper arm Category: Medical (2) Breast pain, left: Code(s): N64.4 - Mastodynia Category: Medical (3) Breast pain, right: Code(s): N64.4 - Mastodynia Category: Medical (4) Myalgia: Code(s): M79.10 - Myalgia, unspecified site Category: Medical (5) Hypovitaminosis D: Code(s): E55.9 - Vitamin D deficiency, unspecified Category: Medical (6) Pain of right scapula: Code(s): M89.8X1 - Other specified disorders of bone, shoulder Category: Medical (7) Hyperlipidemia LDL goal <70: Code(s): E78.5 - Hyperlipidemia, unspecified Category: Medical (8) Hypokalemia: Code(s): E87.6 - Hypokalemia Category: Medical (9) Essential hypertension: Code(s): I10 - Essential (primary) hypertension Category: Medical (10) Type 2 diabetes mellitus, without long-term current use of insulin: Code(s): E11.9 - Type 2 diabetes mellitus without complications Category: Medical Qualifiers: Diabetes mellitus complication status: without complication Qualified Code(s): E11.9 - Type 2 diabetes mellitus without complications Plan Monitor blood pressure, reassess in three weeks. Start potassium supplements, increase dietary potassium intake. Continue rosuvastatin, encourage diet modifications for cholesterol. Begin vitamin D supplements. Arrange X-ray for right scapula, consider muscle relaxant. Continue current diabetes management. Follow-up mammogram scheduled. Patient was informed and verbally consented to the use of an ambient scribe for clinic note documentation during this visit. Orders: Orders XR scapula RT Today M89.8X1 - Other specified disorders of bone, shoulder US breast LT limited Today M79.622 - Pain in left upper arm, N64.4 - Mastodynia US breast RT limited Today N64.4 - Mastodynia MM diagnostic mammo BI Today M79.622 - Pain in left upper arm, N64.4 - Mastodynia Medications: New cholecalciferol (vitamin D3) 50 mcg PO DAILY 90 days 90 caps 1RF E55.9 - Vitamin D deficiency, unspecified baclofen 10 mg PO TID 30 days 90 tabs 0RF M79.10 - Myalgia, unspecified site Refilled potassium chloride ER 10 mEq PO DAILY 30 days 30 caps 4RF rosuvastatin 20 mg PO DAILY 90 days 90 tabs 2RF Discontinued methocarbamol Discontinued Reason: Patient Completed Course 500 mg PO TID 7 days PRN 21 tabs 1RF muscle spasm
[2025-03-05 07:59] VITALS: BP 150/82; BMI 34.0
== END 2025-03-05 08:28 | disposition home or self-care (01) ==
LOC: HO.HMCH 07:52
PROVIDERS: PCP Internal Medicine; Visit Provider Internal Medicine
DX: M79.622 Pain in left upper arm (principal); N64.4 Mastodynia; E11.69 Type 2 diabetes mellitus with other specified complication; M79.10 Myalgia, unspecified site; E55.9 Vitamin D deficiency, unspecified; M89.8X1 Other specified disorders of bone, shoulder; E78.5 Hyperlipidemia, unspecified; E87.6 Hypokalemia; I10 Essential (primary) hypertension

== ENCOUNTER 2025-04-26 11:48 | Outpatient (REF) | payer BC, SELFPAY ==
--- NOTE | ~2025-04-26 | US_ITS ---
EXAMINATIONS: 1. MM DIAGNOSTIC DIGITAL BREAST TOMOSYNTHESIS, BILATERAL 2. Targeted ultrasound of the right breast 3. Targeted ultrasound of the left breast CLINICAL INFORMATION: Focal pain in the bilateral axilla and bilateral upper outer quadrant. COMPARISON: Comparison made to multiple prior, most recent August 15, 2024, and most remote December 20, 2020. TECHNIQUE: Digital breast tomosynthesis is performed in both the craniocaudal and mediolateral oblique views along with computer-aided detection (CAD). Synthesized 2D images are generated from the tomosynthesis. Skin BB markers were placed at the location of the focal pain. FINDINGS: BREAST COMPOSITION: There are scattered areas of fibroglandular density (ACR BI-RADS breast composition Category b). RIGHT BREAST: No significant masses, suspicious calcifications or other abnormalities are seen. In particular, no suspicious mammographic findings at the location of the skin BB markers. Targeted ultrasound of the right breast was performed at the location of the pain as indicated by the patient in the axillary region and upper outer quadrant. Survey did not reveal suspicious sonographic findings. LEFT BREAST: No significant masses, suspicious calcifications or other abnormalities are seen. In particular, no suspicious mammographic findings at the location of the skin markers. Targeted ultrasound of the left breast was performed at that location of the pain as indicated by the patient in the axillary region and upper outer quadrant. Survey did not reveal suspicious sonographic findings. US/US breast BI limited mamm only IMPRESSION: RIGHT BREAST: Negative, no evidence of malignancy. In particular, no suspicious findings to accounts for patient's clinical concern. Clinical follow-up is recommended, otherwise, normal interval follow-up mammogram is recommended in 12 months. LEFT BREAST: Negative, no evidence of malignancy. In particular, no suspicious findings to account for patient's clinical concern. Clinical follow-up is recommended, otherwise, normal interval follow-up mammogram is recommended in 12 months. ASSESSMENT: BI-RADS 1 - Negative RECOMMENDATION: 1 year F/U Results were provided to the patient at time of visit by the technologist. This patient's information was entered into a reminder system with a target due date for their next mammogram. Electronically signed by: Pito Garcia MD 04/26/2025 12:57 PM EDT
== END 2025-04-26 11:49 | disposition home or self-care (01) ==
LOC: HO.MAMMO 11:48
PROVIDERS: PCP Internal Medicine; Visit Provider Internal Medicine
DX: N64.4 Mastodynia (principal)
CPT/HCPCS: 76642; 77062; 77066

== ENCOUNTER → 2025-04-26 12:30 | Outpatient (BNV) | payer BC, SELFPAY | PROVIDERS: PCP Internal Medicine; Visit Provider Radiology Body Imaging | DX: N64.4 Mastodynia (principal) | CPT/HCPCS: 76642; 77062; 77066 ==

== ENCOUNTER 2025-05-27 16:12 | Outpatient (AMB) | payer BC, SELFPAY ==
[2025-05-27 16:27] VITALS: BP 120/72; RESP 18; TEMP 36.2; BMI 33.9
--- NOTE | 2025-05-27 16:27 | MHC.PC.OV ---
Vital Signs 05/27/25 16:27 Height 5 ft 1 in Weight 179 lb 8 oz BMI 33.9 BP 120/72 Blood Pressure Location Lt brachial Position Sitting Respiration 18 Pulse Source Pulse Oximeter Temp 97.1 F Temp Source Temporal Artery Scan Oxygen Delivery Method Room Air Intake Visit Reasons: DM Technical Product Manager Required: No Accompanied by: Self / Same As Patient Allergies dulaglutide (From [facility]) Adverse Reaction (Intermediate, Verified 05/27/25 16:46) weight gain Medication List - Last Reconciled 05/27/25 by Tori Mcneil MD apremilast (Otezla) 30 mg PO ONCE baclofen 10 mg PO TID 30 days betamethasone dipropionate 0.05% 1 appl topical DAILY PRN 2 weeks cholecalciferol (vitamin D3) 50 mcg PO DAILY 90 days empagliflozin (Jardiance) 10 mg PO DAILY 90 days hydrochlorothiazide 25 mg PO DAILY 90 days losartan 100 mg PO DAILY 90 days metformin ER 500 mg PO BID 90 days potassium chloride ER 10 mEq PO DAILY 30 days rosuvastatin 20 mg PO DAILY 90 days Tobacco use date assessed: 05/27/25 Dental Screening Dental Screen Date: 05/27/25 Did you have a dental visit in the last 12 months?: No Did you have a dental problem in the last 6 months where you did not have access to dental care?: No Was dental information given to patient?: No HPI HPI Comments History of Present Illness Details The patient is a 60-year-old female presenting with dizziness and left lower extremity pain. The patient reports experiencing dizziness, which she describes as a sensation that made her feel unsteady and led to a fall near a river. She was not in the water at the time but was sitting on rocks when the dizziness occurred. She has been advised to be cautious to prevent falls. The patient also reports left lower extremity pain, which is associated with a sensation of tickling and itching. The pain is localized and affects her ability to move the foot comfortably. An ultrasound of the left leg has been recommended to rule out deep vein thrombosis (DVT). The patient has a history of psoriasis, for which she is currently using Otezla. She is also on multiple medications including baclofen, vitamin D, Jardiance, hydrochlorothiazide, losartan, metformin, and rosuvastatin for hyperlipidemia. Her last colonoscopy in June 2021 revealed a tubular adenoma, and she is scheduled for a follow-up in 2025. A1c within goal being 7% today. ON LICENSE OF [facility] Surgical History H/O: hysterectomy History of colonoscopy History of appendectomy History of Family History Mother Breast cancer Colon cancer Stomach cancer Father Alzheimer disease Social History Housing: House Alcohol intake: never Patient Tobacco Use Status: Former Tobacco user e-Cigarette/Vaping Use: Never Used Second Hand Smoke Exposure: No service: No Current occupational status: employed Current occupational exposures/hazards: No Cognitive needs: No Hearing needs: No Vision needs: Yes Questionnaire PHQ-9 Over the last 2 weeks, how often have you been bothered by any of the following problems? 1. Little interest or pleasure in doing things: not at all 2. Feeling down, depressed, or hopeless: not at all 3. Trouble falling or staying asleep, or sleeping too much: not at all 4. Feeling tired or having little energy: not at all 5. Poor appetite or overeating: not at all 6. Feeling bad about yourself - or that you are a failure or have let yourself or your family down: not at all 7. Trouble concentrating on things, such as reading the newspaper or watching television: not at all 8. Moving or speaking so slowly that other people could have noticed. Or the opposite - being so fidgety or restless that you have been moving around a lot more than usual: not at all 9. Thoughts that you would be better off or of hurting yourself in some way: not at all Total score: 0 Depression Screening Interpretation: Negative Depression Screening Done: Yes 61204 - PHQ-9 Billing: Yes Source: Developed by Drs. Dennis Martin, Palmira Lozoya, Hitesh Soliz and colleagues, with an educational lois from [employer]. Thrive Questionnaire Date Thrive assessed: 05/27/25 I am a: Patient What is your living situation today?: I choose not to answer this question Within the past 12 months, did the food you bought not last and you didn't have the money to get more?: I choose not to answer this question Within the past 12 months, did you worry whether your food would run out before you got money to buy more?: I choose not to answer this question Do you have trouble paying for medicines?: I choose not to answer this question Do you have trouble getting transportation to medical appointments?: I choose not to answer this question Do you have trouble paying your heating and electricity bill?: I choose not to answer this question Do you have trouble taking care of your child, family member or friend?: I choose not to answer this question Do you have trouble with day-to-day activities such as bathing, preparing meals, shopping, managing finances, etc.?: I choose not to answer this question Are you currently unemployed and looking for a job?: I choose not to answer this question Are you interested in more education?: I choose not to answer this question Please select the resources that you would like help with: None Currently or been in a relationship where the following occur: I choose not to answer THRIVE Score: 0 AUDIT C Alcohol Use Questionnaire (AUDIT-C) 1. How often do you have a drink containing alcohol?: Never Total Score: 0 Score Reviewed/Action Taken: No CARRINGTON-7 AMB Questionnaire CARRINGTON-7 Date CARRINGTON - 7 assessed: 05/27/25 Feeling nervous, anxious, or on edge: 0 = Not at all Not being able to stop or control worryin = Not at all Worrying too much about different things: 0 = Not at all Trouble relaxin = Not at all Being so restless that it is hard to sit still: 0 = Not at all Becoming easily annoyed or irritable: 0 = Not at all Feeling afraid as if something awful might happen: 0 = Not at all Total CARRINGTON-7 score (0-4 normal; 5-9 mild; 10-14 moderate; 15-21 severe): 0 Source: Developed by Drs. Dennis Martin, Palmira Lozoya, Hitesh Soliz and colleagues, with an educational lois from [employer]. CARRINGTON-7 Assessment Billing CARRINGTON-7 Assessment Tool: CARRINGTON-7 Assessment 28230 Review of Systems Const All systems reviewed & are unremarkable except as noted in HPI and below Card Denies chest pain at rest, Denies chest pain with activity, Denies edema, Denies irregular heart rhythm, Denies claudication, Denies dyspnea, Denies dyspnea on exertion, Denies orthopnea, Denies paroxysmal nocturnal dyspnea and Denies slow heart rate Resp Denies cough, Denies dyspnea and Denies dyspnea on exertion GI Denies abdominal pain, Denies change in bowel habits, Denies excessive flatus, Denies nausea and Denies vomiting Physical exam (Primary Care) Vital Signs: Last Vital Signs Temp 97.1 F 05/27/25 16:27 Resp 18 05/27/25 16:27 BP 120/72 05/27/25 16:27 Oxygen Delivery Method Room Air 05/27/25 16:27 BMI result Body Mass Index 33.9 Tobacco/Smoking Status: Tobacco use Status Tobacco use date assessed 05/27/25 05/27/25 16:36 Patient Tobacco Use Status Former Tobacco user 05/27/25 16:36 e-Cigarette/Vaping Use Never Used 05/27/25 16:36 PHQ-9: PHQ-9 Score PHQ-9: Total score 0 05/27/25 17:09 Depression Screening Interpretation: Negative Thrive Assessment: Date of Thrive Assessment Date Thrive assessed 05/27/25 05/27/25 16:36 Currently or been in a relationship where the following occur: I choose not to answer Resp Effort & Inspection: normal respiratory effort Auscultation: clear to auscultation bilaterally Cardio Jugular venous distension: no JVD Rate: regular rate Rhythm: regular rhythm Heart sounds: S1 normal heart sound present and S2 normal heart sound present Extrem General: Yes full ROM Results AMB Hemoglobin A1c AMB Hemoglobin A1c 7.0 % Last Edit by FELIPE Wills on 05/27/25 17:09 Results Reviewed Results Reviewed: Laboratory Last Values Hgb A1c (Clinic) 7.0 % (4.0-6.0) H 05/27/25 16:49 Coding Level of Care Code Est Pt Level 4 (19714) Complex EM visit Add On G2211 Diagnoses Type 2 diabetes mellitus without complication, without long-term current use of insulin E11.9 Diabetes mellitus complication status: without complication Essential hypertension I10 Hyperlipidemia LDL goal <70 E78.5 Hypovitaminosis D E55.9 Psoriatic arthritis L40.50 Left leg pain M79.605 Left foot pain M79.672 Additional Codes CARRINGTON-7 Assessment Billing - CARRINGTON-7 Assessment Tool: CARRINGTON-7 Assessment 21601 ([id number]) PHQ-9 - 38221 - PHQ-9 Billing: Yes ([id number]) Time Spent (min) 23 Assessment & Plan Assessment & Plan (1) Type 2 diabetes mellitus, without long-term current use of insulin: Code(s): E11.9 - Type 2 diabetes mellitus without complications Category: Medical Qualifiers: Diabetes mellitus complication status: without complication Qualified Code(s): E11.9 - Type 2 diabetes mellitus without complications (2) Essential hypertension: Code(s): I10 - Essential (primary) hypertension Category: Medical (3) Hyperlipidemia LDL goal <70: Code(s): E78.5 - Hyperlipidemia, unspecified Category: Medical (4) Hypovitaminosis D: Code(s): E55.9 - Vitamin D deficiency, unspecified Category: Medical (5) Psoriatic arthritis: Code(s): L40.50 - Arthropathic psoriasis, unspecified Category: Medical (6) Left leg pain: Code(s): M79.605 - Pain in left leg Category: Medical (7) Left foot pain: Code(s): M79.672 - Pain in left foot Category: Medical Plan Continue same medications for diabetes, hypertension and hyperlipidemia. X-ray of the left foot ordered. Ultrasound of the legs leg ordered to rule out DVT. Orders: Orders US venous duplex LE LT Today M79.605 - Pain in left leg Vitamin D 25-OH Total Today E55.9 - Vitamin D deficiency, unspecified AMB Hemoglobin A1c Today E11.9 - Type 2 diabetes mellitus without complications XR foot LT 2V Today M79.672 - Pain in left foot Lipid Panel Today E78.5 - Hyperlipidemia, unspecified Microalbumin, Random (w Creat) Today R80.9 - Proteinuria, unspecified Comprehensive [place]. Panel Fast Today E11.9 - Type 2 diabetes mellitus without complications Magnesium Today R25.2 - Cramp and spasm
== END 2025-05-27 17:00 | disposition home or self-care (01) ==
LOC: HO.HMCH 16:13
PROVIDERS: PCP Internal Medicine; Visit Provider Internal Medicine
DX: E11.69 Type 2 diabetes mellitus with other specified complication (principal); L40.50 Arthropathic psoriasis, unspecified; I10 Essential (primary) hypertension; E78.5 Hyperlipidemia, unspecified; E55.9 Vitamin D deficiency, unspecified; M79.605 Pain in left leg; M79.672 Pain in left foot

== ENCOUNTER → 2025-05-27 16:12 | Outpatient (BNVA) | payer BC, SELFPAY | PROVIDERS: PCP Internal Medicine; Visit Provider Internal Medicine | DX: E11.9 Type 2 diabetes mellitus without complications (principal); R42 Dizziness and giddiness; E78.5 Hyperlipidemia, unspecified; I10 Essential (primary) hypertension; E55.9 Vitamin D deficiency, unspecified; L40.50 Arthropathic psoriasis, unspecified; M79.605 Pain in left leg; M79.672 Pain in left foot; Z79.84 Long term (current) use of oral hypoglycemic drugs; Z79.899 Other long term (current) drug therapy | CPT/HCPCS: 83036; 96127 ==

== ENCOUNTER 2025-05-28 15:38 | Outpatient (REF) | payer BC, SELFPAY ==
--- NOTE | ~2025-05-28 | XR_ITS ---
EXAMINATION: XR FOOT, LEFT CLINICAL INFORMATION: M79.672 - Pain in left foot COMPARISON: None available. TECHNIQUE: AP, lateral, and oblique views of the left foot. FINDINGS: Joint spaces are preserved. No degenerative changes are identified. Moderate enthesophyte is present at the Achilles attachment onto calcaneus. There is a small calcaneal spur at the plantar fascial attachment. XR/XR foot LT min 3V IMPRESSION: Nonspecific calcaneal spurs are present. Electronically signed by: Francis Zaragoza MD 05/28/2025 05:23 PM EDT
--- NOTE | ~2025-05-28 | US_ITS ---
EXAMINATION: US TRIPLEX LOWER EXTREMITY, LEFT CLINICAL INFORMATION: Pain, left lower extremity COMPARISON: None available. TECHNIQUE: Color-flow triplex imaging with spectral analysis and compression Doppler were performed on the left lower extremity. FINDINGS: Respiratory variation, normal compression and augmented flow are demonstrated in the interrogated left common femoral vein, superficial femoral vein, profunda femoral vein, popliteal vein and midcalf peroneal and posterior tibial venous segments . There is no Black's cyst. US/US venous duplex LE IMPRESSION: No acute deep venous thrombosis interrogated veins, left lower extremity. Negative for DVT. Electronically signed by: Adam Dwyer MD 05/28/2025 04:21 PM EDT
--- NOTE | ~2025-05-28 | XR_ITS ---
EXAMINATION: XR ABDOMEN KUB CLINICAL INDICATION: N20.0 - Calculus of kidney COMPARISON: None available. TECHNIQUE: AP view of the abdomen. FINDINGS: 6 mm density projecting over the upper pole the left kidney could represent stool, but a stone is not ruled out. Kidneys are mostly obscured by bowel content. There is moderate stool in the cecum and descending colon. Multiple calcifications in the pelvis are likely phleboliths. The bowel gas pattern is normal. XR/XR KUB IMPRESSION: 6 mm density projecting over the upper pole the left kidney could represent stool, but a stone is not ruled out. Electronically signed by: Francis Zaragoza MD 05/28/2025 05:21 PM EDT
--- NOTE | ~2025-05-28 | XR_ITS ---
EXAMINATION: XR HIP, RIGHT CLINICAL INFORMATION: M25.551 - Pain in right hip COMPARISON: None available. TECHNIQUE: AP and frog-leg lateral views of the right hip. FINDINGS: Roof osteophytes are present. Hip joint spaces preserved. No other abnormality is identified. XR/XR hip RT min 2V IMPRESSION: Acetabular osteophytes are present without joint space narrowing in the right hip. Electronically signed by: Francis Zaragoza MD 05/28/2025 05:22 PM EDT
--- NOTE | ~2025-05-28 | XR_ITS ---
EXAMINATION: XR SCAPULA, RIGHT CLINICAL INFORMATION: M89.8X1 - Other specified disorders of bone, shoulder COMPARISON: None available. TECHNIQUE: AP and scapular Y views of the right scapula. FINDINGS: The bones and soft tissues are normal. No scapular fracture. Glenohumeral and acromioclavicular alignment is normal. XR/XR scapula RT IMPRESSION: Unremarkable right scapula Electronically signed by: Francis Zaragoza MD 05/28/2025 05:19 PM EDT
== END 2025-05-28 15:39 | disposition home or self-care (01) ==
LOC: HO.US 15:38
PROVIDERS: PCP Internal Medicine; Visit Provider Internal Medicine
DX: N20.0 Calculus of kidney (principal); M79.605 Pain in left leg; M79.672 Pain in left foot; M25.551 Pain in right hip; M89.8X1 Other specified disorders of bone, shoulder
CPT/HCPCS: 73010; 73502; 73630; 74018; 93971

== ENCOUNTER → 2025-05-28 15:42 | Outpatient (BNV) | payer BC, SELFPAY | PROVIDERS: PCP Internal Medicine; Visit Provider Radiology Diagnostic Radiology | DX: M79.605 Pain in left leg (principal); M25.751 Osteophyte, right hip; M89.8X1 Other specified disorders of bone, shoulder; K59.00 Constipation, unspecified; M77.52 Other enthesopathy of left foot and ankle | CPT/HCPCS: 73010; 73502; 73630; 74018; 93971 ==